=== PATIENT | female | born 1990 | race Caucasian/White ===

== ENCOUNTER 2019-04-02 06:00 | Day surgery (SDC) | payer OTHER ==
[~2019-04-02 06:00] MED LIST: KEFZOL 1 GM/50 ML PREMIX** 1 GM/50 ML IVPB IV SCH; Lactated Ringers 1,000 ML IV SCH
[2019-04-02] MEDS ORDERED: Lactated Ringers 1,000 ML IV ONE (06:18)
[2019-04-02] MEDS ORDERED: KEFZOL 1 GM/50 ML PREMIX** 1 GM/50 ML IVPB IV ONE (06:27)
[2019-04-02] MEDS ORDERED: DIPRIVAN 200 MG/20 ML IV ONE (06:48)
[2019-04-02] MEDS ORDERED: SUBLIMAZE 100 MCG/2 ML ONE (06:48)
[2019-04-02] MEDS ORDERED: Decadron 4 MG INJ ONE (07:04)
[2019-04-02] MEDS ORDERED: Zofran 4 MG/2 ML VIAL ONE (07:04)
[2019-04-02] MEDS ORDERED: Pitocin 10 UNITS/ML ONE (07:11)
[2019-04-02] MEDS ORDERED: Sodium Chloride 0.9% 250 ML 250 ML IV ONE (07:14)
[2019-04-02] MEDS ORDERED: TRANEXAMIC ACID 1000 MG/10 ML ONE (07:20)
[2019-04-02 08:00] VITALS: PULSE 84
[2019-04-02 08:36] VITALS: BP 127/69
[2019-04-02 08:52] VITALS: O2SAT 99
--- NOTE | 2019-04-02 08:54 | OP ---
SURGERY DATE/TIME: 04/02/2019 0658 PREOPERATIVE DIAGNOSIS: Missed , demise at 10 weeks, 2 days gestation. POSTOPERATIVE DIAGNOSIS: Missed , demise at 10 weeks, 2 days gestation. PROCEDURE: Ultrasound guided suction D&C. SURGEON: Pablo Alvarez D.O. TESTING COORDINATOR: Candi Michaud, operating room surgical technician. ANESTHESIA: General. ESTIMATED BLOOD LOSS: Minimal. COMPLICATIONS: None. INDICATIONS: The risks, benefits, indications and alternatives of the procedure were reviewed with the patient prior to procedure. The patient understood the risk of infection, bleeding, bowel injury, bladder injury, ureteral injury, uterine perforation associated with the surgery and desires to have the surgery as a possible means to alleviate her current medical condition. DESCRIPTION OF PROCEDURE AND FINDINGS: At this time the patient is taken to the operating room, given general sedation, placed in the dorsal lithotomy position. Prepped and draped in the usual sterile fashion. A weighted speculum is then placed in the patient's vagina and the anterior lip of the cervix is grasped with a single tooth tenaculum. Endocervical dilators were advanced through the endocervical canal as a means to dilate the cervix and at this point a #9 suction evacurette was placed into the endocervical canal where after introduction in the endocervical canal the machine was turned on for suctioning and retrieval for products of conception was ensued. From this point after significant removal of products of conception, the suction evacurette was switched to a #10 and under ultrasound guidance there appeared to be no products of conception that were noted by ultrasound during this time. After suctioning the evacurette was then removed and a curette was then placed into the fundus of the uterus and curettage was performed in all quadrants of the uterus retrieving the remaining tissue that may have been left behind. At this point again under ultrasound guidance there were no tissues that were noted and at this point all instruments were then removed from the patient's vaginal region. The patient was then taken out of the dorsal lithotomy position and was then taken to the recovery room in stable condition. All instruments and laps were accounted for x2.
[2019-04-02] MEDS ORDERED: Lactated Ringers 1,000 ML IV SCH (16:30)
== END 2019-04-02 08:25 | disposition home or self-care (01) ==
LOC: SDC 06:00
PROVIDERS: ATTEND Obstetrics & Gynecology
DX: O02.1 Missed abortion (principal)
CPT/HCPCS: 36415; 59820; 76937; J0690; J1100; J2405; J2590; J2704; J3010

== ENCOUNTER 2019-07-13 08:54 | Day surgery (SDC) | payer OTHER ==
[2019-07-13] MEDS ORDERED: EXPAREL 266 MG/20 ML VIAL IJ ONE (08:55)
--- NOTE | 2019-07-13 09:56 | HP ---
DATE OF SURGERY: 07/13/2019 HISTORY OF PRESENT ILLNESS: The patient is a 29 year-old who had pain, swelling and redness pilonidal area over the past three weeks, increased pain and swelling. She had just started on some antibiotics per Dr. Thacker who had asked for surgical evaluation. She is not having any current drainage. PAST MEDICAL HISTORY: She denies any chronic illnesses. PAST SURGICAL HISTORY: She had D&C in the past. MEDICATIONS: She had been on Bactrim recently as well as control pill. ALLERGIES: NKDA. FAMILY HISTORY: Negative in regards to this problem. SOCIAL HISTORY: No alcohol abuse. REVIEW OF SYSTEMS: Fourteen systems reviewed per admission assessment. No chest pain or palpitations. Otherwise pertinent for aches and pains in pilonidal area and has not had I&D. It is not spontaneously draining. Other systems negative or noncontributory as above and per preadmission questionnaire. PHYSICAL EXAMINATION: GENERAL: No acute distress. ENT - Moist mucous membranes. HEENT: Sclerae nonicteric. NECK: No JVD. CHEST: Equal excursion, nonlabored breathing. CVS: Regular rate and rhythm. ABDOMEN: Soft, nondistended. EXTREMITIES: No significant edema. NEURO: Alert, oriented, moving extremities symmetrically. No gross motor deficits noted. PSYCH: Appropriate mood and affect. : In the pilonidal area there is some induration cephalad off to the right looks like there may be a couple small pits in the midline. No active drainage. Very tender to palpation. IMPRESSION: Pilonidal cyst disease. Options were discussed with the patient at length in the office for some time including the option of office I&D as we did not have our instruments here in this clinic this morning and would need to set up in [facility] on Saturday if she elected that option versus I&D in the operating room to allow it to drain and hopefully get smaller than come back at a later date for definitive excision versus definitive excision at this setting, had a long discussion of risks and benefits. She prefers for definitive excision. She was explained the risks and benefits in detail including but not limited to bleeding or infection. The fact that excising it now given degree of infection likely would not be safe to try to close with flaps or other methods and likely would need to pack the wound, need to be packed from the base of the wound on at least a daily basis starting tomorrow. Remove and repack normal saline wet to dry. She understands. She was shown the risk sheet and understands that 90% or more heal in 8 to 12 weeks by secondary intent with packing and 5% slow heal and take longer than that, 5% fail to heal and need to try other methods. She understands there is a 20% risk of recurrence regardless how this pilonidal is treated. She understands the importance of keeping hair away from the wound to lessen the chance of recurrence both perioperatively and snf postoperatively as well as importance of minimizing aggressive activity in the early phase. She understands the risk of infection, general risk of anesthesia, deep venous thrombosis, pulmonary embolism, pneumonia, risk of aches, pains possible long-term or chronic in nature. She understands after hearing all the options she prefers to go ahead and proceed with definitive excision of this infected pilonidal cyst disease at this time understanding there is a very probable likelihood of needing to pack and change packing on a daily basis for several weeks. She prefers this rather than a trial of I&D and then definitive excision at a later date. She does understand the remote possibility if we are able to close it today that sutures will need to be in place for three weeks or so and there is a risk of dehiscence or infection that would still require packing and healing for 8 to 12 weeks. Will proceed with excisional biopsy of infected pilonidal cyst probable packing possible flap closure.
[2019-07-13] MEDS ORDERED: CEFAZOLIN 2 GM-D5W BAG** 2 GM/50 ML ML IV ONE (10:15)
[2019-07-13] MEDS ORDERED: Lactated Ringers 1,000 ML IV ONE ×3 (10:15→13:07)
[2019-07-13] MEDS ORDERED: CEFAZOLIN 2 GM-D5W BAG** 2 GM/50 ML ML IV SCH (10:30)
[2019-07-13] MEDS ORDERED: Lactated Ringers 1,000 ML IV SCH (10:30)
[2019-07-13] MEDS ORDERED: BRIDION 200MG/2ML IV ONE (12:11)
[2019-07-13] MEDS ORDERED: Zemuron 100 MG/10 ML ONE (12:11)
[2019-07-13] MEDS ORDERED: Xylocaine-Mpf 2% 5 Ml Vial ONE (12:11)
[2019-07-13] MEDS ORDERED: Decadron 4 MG INJ ONE (12:11)
[2019-07-13] MEDS ORDERED: SUBLIMAZE 100 MCG/2 ML ONE ×2 (12:11→13:05)
[2019-07-13] MEDS ORDERED: Zofran 4 MG/2 ML VIAL ONE (12:11)
[2019-07-13] MEDS ORDERED: TORAdol 30 mg Injection ONE (12:11)
[2019-07-13] MEDS ORDERED: DIPRIVAN 200 MG/20 ML IV ONE (12:11)
[2019-07-13] MEDS ORDERED: DILAUDID 2 MG INJECTION ONE (12:58)
[2019-07-13] MEDS ORDERED: NORCO 5/325 MG PO PRN (13:58)
[2019-07-13 14:10] VITALS: O2SAT 98
--- NOTE | 2019-07-13 15:05 | OP ---
SURGERY DATE/TIME: 07/13/2019 1214 PREOPERATIVE DIAGNOSIS: Infected pilonidal cyst. POSTOPERATIVE DIAGNOSIS: Infected pilonidal cyst including abscess. PROCEDURE: Excisional biopsy of infected pilonidal cyst with culture, irrigation and packing. SURGEON: Dr. Zachary Kovacs. ANESTHESIA: General. ESTIMATED BLOOD LOSS: Minimal. INDICATIONS: As noted above. Risks and benefits explained in detail and not limited to and consent obtained. DESCRIPTION OF PROCEDURE AND FINDINGS: The patient is taken to the operating room. General anesthesia introduced. Prone position, appropriate padding and positioned per anesthesia and OR staff. The abdominal area was prepped and draped in usual sterile fashion. After official time out and no disagreement with planned procedure, marking out around the extremely indurated area including a couple of midline pits. Dissection carried down to normal appearing underlying fascia. It was a large abscess cavity. Culture was taken in this cavity. It was excised as well as possible excising the granulation tissue, passing the specimen off for pathology and about 4 cm underneath and 2 cm deep. Cultures taken. Copious irrigation accomplished. Pin point cautery was used. Good hemostasis noted. The wound was then packed with saline soaked gauze, normal saline wet to dry. I did not ask for it but they had already opened Exparel so Exparel was used for local anesthetic around the area usually use 0.25% Marcaine but as they had opened Exparel injected Exparel in the wound site. The patient tolerated the procedure well. There were no immediate complications. Again, the patient fully understood that excising this would require packing preoperatively on a daily basis starting the day after the procedure so starting tomorrow she will need to remove the packing and repack normal saline wet to dry. I will see her back in the office next week. She already had antibiotics per primary care physician, will see her back in the office. This wound was far too infected to try closing as it would certainly dehisce and require packing anyway. Therefore it was packed at this setting.
[2019-07-13 15:09] VITALS: BP 127/66; PULSE 66
== END 2019-07-13 14:55 | disposition home or self-care (01) ==
LOC: SDC 08:54
PROVIDERS: ATTEND Surgery
DX: L05.01 Pilonidal cyst with abscess (principal)
CPT/HCPCS: 84703; 87070; J0690; J1100; J1170; J1885; J2405; J2704; J3010; A9270-GY

== ENCOUNTER 2020-06-21 02:13 | Inpatient (IN) | payer OTHER ==
[2020-06-21] MEDS ORDERED: Zofran 4 MG/2 ML VIAL IV PRN (19:00)
[2020-06-21] MEDS ORDERED: TYLENOL EXTRA STRENGTH 500 MG PO PRN (19:00)
[2020-06-21] MEDS ORDERED: BRETHINE 1 MG/ML SQ PRN (20:12)
[2020-06-21 20:15] LABS: Amphetamine,Urine NEGATIVE (NEGATIVE); Barbiturate,Urine NEGATIVE (NEGATIVE); Benzodiazepine,Urine NEGATIVE (NEGATIVE); Cocaine,Urine NEGATIVE (NEGATIVE); Methadone,Urine NEGATIVE (NEGATIVE); Opiate,Urine NEGATIVE (NEGATIVE); PCP,Urine NEGATIVE (NEGATIVE); THC,Urine NEGATIVE (NEGATIVE)
[2020-06-21] MEDS ORDERED: PITOCIN 30 UNITS/ LR 500 ML 30 UNITS/500 ML IV.SOLN. IV SCH (20:30)
[2020-06-21] MEDS: Lactated Ringers 1,000 ML IV SCH (20:49)
[2020-06-21 20:52] LABS: Absolute Neutrophil Ct (ANC) 10.29 (1.4-6.9); BASOPHIL % 0.2 % (0.0-0.4); Basophil (Absolute #) 0.02 (0-0.4); Eosinophil % 0.5 % (0.00-5.0); Eosinophil (Absolute #) 0.07 (0-0.5); Hematocrit 40.2 % (35-47); Lymphocytes % 13.8 % (24.0-44.0); Mean Cell Volume 90.7 fl (78-100); Mean Corpuscular Hemoglobin 29.3 pg (26-32); Mean Corpuscular Hgb Concent. 32.3 g/dl (32-36); Mean Platelet Volume 11.6 fl (7.5-11.0); Monocyte (Absolute #) 0.86 (0.0-1.3); Monocytes % 6.6 % (0.0-12.0); Neutrophil % 78.9 % (36.0-66.0); Platelet Count 184 K/mm3 (150-450); Red Blood Count 4.43 M/mm3 (4.1-5.4); Red Cell Distribution Width 13.9 % (11.5-14.0)
[2020-06-21] MEDS ORDERED: OMNIPEN 2 GM*** 2 G in Sodium Chloride 100ML MINI-BAG PLUS 100 ML IV ONE (21:00)
[2020-06-21] MEDS ORDERED: Cervidil 10 MG VAG SCH (22:00)
[2020-06-22] MEDS: OMNIPEN 1 GM*** 1 GM in Sodium Chloride 100ML MINI-BAG PLUS 100 ML IV SCH ×6 (01:15→21:00)
[2020-06-22] MEDS: Lactated Ringers 1,000 ML IV SCH ×3 (03:00→21:00)
[2020-06-22] MEDS ORDERED: OMNIPEN 2 GM*** 2 G in Sodium Chloride 100ML MINI-BAG PLUS 100 ML IV ONE (07:00)
[2020-06-22] MEDS ORDERED: Lactated Ringers 1,000 ML IV SCH (07:00)
[2020-06-22] MEDS ORDERED: PITOCIN 30 UNITS/ LR 500 ML 30 UNITS/500 ML IV.SOLN. IV SCH ×2 (08:00→10:00)
[2020-06-22] MEDS ORDERED: XYLOCAINE 1% HCL 20 ML MDV IJ PRN (08:00)
[2020-06-22] MEDS ORDERED: CORTISONE 1% CREAM TP PRN (16:21)
[2020-06-22] MEDS ORDERED: LANSINOH 40 GM TOP PRN (16:21)
[2020-06-22] MEDS ORDERED: NORCO 5/325 MG PO PRN (16:21)
[2020-06-22] MEDS ORDERED: Anucort-HC SUPPOSITORY PR PRN (16:21)
[2020-06-22] MEDS ORDERED: Dulcolax 10 MG SUPP PR PRN (16:21)
[2020-06-22] MEDS ORDERED: Mylicon 80MG PO PRN (16:21)
[2020-06-22] MEDS: Dermoplast Spray TP PRN (18:10)
[2020-06-22] MEDS: TUCKS TP PRN (18:11)
[2020-06-22] MEDS: MOTRIN 400 MG PO PRN (22:14)
[2020-06-22] MEDS: Colace 100 MG PO SCH (22:14)
[2020-06-23] MEDS: MOTRIN 400 MG PO PRN ×2 (04:09→10:13)
[2020-06-23 05:51] LABS: Absolute Neutrophil Ct (ANC) 10.37 (1.4-6.9); BASOPHIL % 0.1 % (0.0-0.4); Basophil (Absolute #) 0.02 (0-0.4); Eosinophil % 0.4 % (0.00-5.0); Eosinophil (Absolute #) 0.05 (0-0.5); Hemoglobin 11.3 gm/dl (12.0-16.0); Lymphocyte (Absolute #) 2.42 (1.0-4.6); Lymphocytes % 17.2 % (24.0-44.0); Mean Cell Volume 91.6 fl (78-100); Mean Corpuscular Hemoglobin 29.6 pg (26-32); Mean Corpuscular Hgb Concent. 32.3 g/dl (32-36); Mean Platelet Volume 11.6 fl (7.5-11.0); Monocyte (Absolute #) 1.24 (0.0-1.3); Monocytes % 8.8 % (0.0-12.0); Neutrophil % 73.5 % (36.0-66.0); Platelet Count 158 K/mm3 (150-450); Red Blood Count 3.82 M/mm3 (4.1-5.4); Red Cell Distribution Width 14.1 % (11.5-14.0); White Blood Count 14.1 K/mm3 (4.0-10.5)
[2020-06-23] MEDS: Colace 100 MG PO SCH ×2 (10:13→22:51)
[2020-06-23] MEDS: FERREX 150 PO SCH (10:14)
[2020-06-23] MEDS: TUCKS TP PRN (23:38)
[2020-06-23] MEDS: Dermoplast Spray TP PRN (23:38)
[2020-06-24 04:54] VITALS: O2SAT 96
--- NOTE | 2020-06-24 09:30 | PCM.DS ---
Discharge Summary Date of Admission: 06/22/20 09:11 Admitting Physician: RAGHAV MARTINEZ Primary Care Provider: RAGHAV MARTINEZ Allergies Allergies No Known Drug Allergies Allergy (Verified 04/01/19 16:13) Hospital Summary - Hospital Course Hospital Course: Pt came in as 30yo at 39w 6d for cervadil IOL due to term (and macrosomic previous delivery). Last u/s 3 weeks prior showed fetus at 66%ile. Pt was given cervadil overnight, and after AROM (clear fluid), pt progressed without pitocin or epidural and delivered a viable 8lb 2oz female over intact perineum. Short shoulder dystocia which resolved with McRobert's, suprapubic pressure, and manual delivery of posterior shoulder. Placenta delivered spontaneously, intact. Bottle feeding. Pt has recovered well, not on any narcotic pain medication. No complaints. H&H stable. Will be discharged to home today with baby. - Vitals & Intake/Output Vital Signs: Vital Signs Temperature 97.9 F 06/24/20 02:00 Pulse Rate 57 L 06/24/20 02:00 Respiratory Rate 18 06/24/20 02:00 Blood Pressure 118/61 06/24/20 02:00 O2 Sat by Pulse Oximetry 96 06/24/20 02:00 Intake & Output: Intake & Output 06/21/20 06/22/20 06/23/20 06/24/20 11:59 11:59 11:59 11:59 Intake Total 919 3762 1989 Balance 919 3762 1989 Weight 119.295 kg - Lab Result Diagrams: 06/23/20 05:45 Discharge Exam General Appearance: no apparent distress, alert Neurologic Exam: oriented x 3, cooperative Eye Exam: eyes nml inspection Ears, Nose, Throat Exam: moist mucous membranes Neck Exam: normal inspection Respiratory Exam: normal breath sounds, lungs clear, No crackles/rales, No rhonchi, No wheezing Cardiovascular Exam: regular rate/rhythm, normal heart sounds, No murmur Gastrointestinal/Abdomen Exam: soft, other (fundus firm approx 2cm superior to umbilicus), No tenderness Extremity Exam: swelling (trace pretibial edema bilat) Final Diagnosis/Problem List - Final Discharge Diagnosis/Problem (1) Vaginal delivery Current Visit: Yes Status: Acute Assessment & Plan: PPD #2, doing great. Home with baby today. F/u with me in 4-6 weeks. Code(s): O80 - ENCOUNTER FOR FULL-TERM UNCOMPLICATED DELIVERY (2) Anemia Current Visit: Yes Status: Acute Assessment & Plan: Mild. Fe x 1 mo. Code(s): D64.9 - ANEMIA, UNSPECIFIED - Discharge Disposition: Home, Self-Care Condition: Good Prescriptions: New Ferrous Sulfate 325 mg [Feosol 325 mg] 325 mg PO DAILY #30 tablet Ibuprofen 600 mg PO TID PRN #35 tablet PRN Reason: Pain Continue Vits W-Ca,Fe,FA(<1Mg) [] 1 tab PO DAILY Follow up with: RAGHAV MARTINEZ [Primary Care Provider] -
[2020-06-24] MEDS: FERREX 150 PO SCH (10:03)
[2020-06-24] MEDS: Colace 100 MG PO SCH (10:03)
[2020-06-24 15:53] VITALS: BP 122/67; PULSE 70
== END 2020-06-24 16:00 | disposition home or self-care (01) | DRG 807 ==
LOC: OB 09:11 → OBSVTOIN 06-22 09:11
PROVIDERS: ADMIT Family Medicine; ATTEND Family Medicine
PROC: 10E0XZZ Delivery of Products of Conception, External Approach (ICD-10-PCS; principal; 2020-06-22)
DX: O69.81X0 Labor and delivery complicated by cord around neck, without compression, not applicable or unspecified (principal); Z37.0 Single live birth; Z3A.40 40 weeks gestation of pregnancy; D64.9 Anemia, unspecified
CPT/HCPCS: 36415; 80307; 85025; G0378; J0290; J2590; A9270-GY

== ENCOUNTER 2023-09-01 11:22 | Emergency (ER) | payer OTHER ==
[2023-09-01 11:35] VITALS: BP 109/69; PULSE 61; TEMP 98.1; O2SAT 98
--- NOTE | 2023-09-01 11:52 | ERPHSYRPT ---
- History of Present Illness Time Seen by Provider: 09/01/23 11:49 Source: patient Exam Limitations: no limitations Patient Subjective Stated Complaint: Pt fell face first on concrete Saturday night and has an abrasion to her right forehead and a black eye Triage Nursing Assessment: Pt drove self to the ER, vitals wnl, rates pain as 3/10, has had a continual headache since the fall, pt had minimal swelling above her eye yesterday and woke this morning with her right eye bruised and almost swollen shut, denies LOC, denies N&V, pulses normal, skin n/w/d, forehead already scabbing over Physician History: Pt fell face first on concrete Saturday night and has an abrasion to her right forehead and a black eye has had a continual headache since the fall, pt had minimal swelling above her eye yesterday and woke this morning with her right eye bruised and almost swollen shut, denies Loss of consciousness forehead already scabbing over Occurred: days ago (Two days ago) Head Injury Location: frontal Method of Injury: fell Loss of Consciousness: no loss of consciousness Associated Symptoms: headaches Allergies/Adverse Reactions: No Known Drug Allergies Allergy (Verified 09/01/23 11:35) Home Medications: No Reportable Medications [No Reported Medications] 09/01/23 [History] Hx Tetanus, Diphtheria Vaccination/Date Given: Yes Hx Influenza Vaccination/Date Given: No Hx Pneumococcal Vaccination/Date Given: No Travel Risk - International Travel Have you traveled outside of the country in past 3 weeks: No - Emerging Infectious Disease Are you exhibiting symptoms associated with any current EIDs: No - Review of Systems Constitutional: No Symptoms Eyes: Other (right side racoon eye) Ears, Nose, & Throat: No Symptoms Respiratory: No Symptoms Cardiac: No Symptoms Abdominal/Gastrointestinal: No Symptoms Genitourinary Symptoms: No Symptoms Musculoskeletal: No Symptoms Skin: No Symptoms Neurological: Headache - Past Medical History Pertinent Past Medical History: Yes Neurological History: No Pertinent History ENT History: No Pertinent History Cardiac History: No Pertinent History Respiratory History: No Pertinent History Endocrine Medical History: No Pertinent History Musculoskeletal History: No Pertinent History GI Medical History: No Pertinent History History: No Pertinent History Psycho-Social History: Anxiety Female Reproductive Disorders: Other Other Medical History: miscarriage 2011 @ 2019 - Past Surgical History Past Surgical History: Yes Neuro Surgical History: No Pertinent History Cardiac: No Pertinent History Respiratory: No Pertinent History Gastrointestinal: No Pertinent History Genitourinary: No Pertinent History Musculoskeletal: No Pertinent History Female Surgical History: Dilation & Curettage, Tubal Ligation Other Surgical History: d&c x2 cyst removal 2020 Significant Family History: no pertinent family hx - Female History Hx Last Menstrual Period: PT UNSURE Hx Now: No (tubal) - Social History Smoking Status: Former smoker How long have you smoked: FEW YRS" Exposure to second hand smoke: Yes Alcohol Use: Socially Drug Use: none Patient Lives Alone: No - Social Determinants of Health Will the patient participate in the screening: Yes Do you worry about a steady place to live?: No Do you have any problems with any of the following?: No known problems In the past 12 months,have you had to go without utilities?: No Transportation Issues: No Has anyone in your support network made you feel unsafe?: No Have you or anyone in your house had to go without enough: No - Nursing Vital Signs Nursing Vital Signs: Initial Vital Signs Temperature 98.1 F 09/01/23 11:28 Pulse Rate 61 09/01/23 11:28 Blood Pressure 109/69 09/01/23 11:28 O2 Sat by Pulse Oximetry 98 09/01/23 11:28 Pain Scale Pain Intensity 3 - Thermal Coma Score Best Eye Response (Omid): (4) open spontaneously Best Verbal Response (Omid): (5) oriented Best Motor Response (Omid): (6) obeys commands Thermal Total: 15 - Physical Exam General Appearance: no apparent distress, alert Head Injury: raccoon eyes Eye Exam: bilateral eye: PERRL, EOMI ENT Exam: airway nml Neck Exam: supple Cardiovascular/Respiratory Exam: chest non-tender, normal breath sounds, regular rate/rhythm Gastrointestinal/Abdominal Exam: soft, non tender, no distention Back Exam: normal inspection, No vertebral tenderness Extremity Exam: non-tender, normal range of motion, normal inspection Mental Status Exam: alert, oriented x 3, cooperative development team lead Exam: normal hearing Coordination/Gait Exam: normal finger to nose Motor/Sensory Exam: no motor deficit, no sensory deficit, CN II-XII intact Skin Exam: normal color, warm, dry, No rash SpO2 Interpretation: normal SpO2: 98 O2 Delivery: Room Air - Course Nursing assessment & vital signs reviewed: Yes - CT Exams Head CT Interpretation: Tele-radiologist Report Ordered Tests: Active Orders 24 hr Category Date Time Status HEAD WITHOUT CONTRAST [CT] Stat Exams 09/01/23 12:00 Completed Lab/Rad Data: CT/HEAD WITHOUT CONTRAST CLINICAL HISTORY: fall, head injury COMPARISON: none. TECHNIQUE: An axial non-contrast CT scan of the brain was performed from the skull base to the high parietal region. One of the following dose-reduction techniques was utilized for this exam. Automated exposure control, adjustment of the mA and/or kV according to patient size, and use of iterative reconstruction. FINDINGS: Skull : Normal skull morphology.No fracture lines Brain Parenchyma: Normal attenuation of the cerebral hemispheres, cerebellum, and brainstem. No evidence of acute infarct, hemorrhage, or mass effect. No abnormal areas of hypo- or hyperattenuation. Ventricular System: Ventricles are normal in size and configuration. No evidence of hydrocephalus or ventricular enlargement. Subarachnoid Spaces: Normal sulci and cisterns. No evidence of subarachnoid hemorrhage or extra-axial fluid collections. Cerebellum and Brainstem: Normal size and signal. No masses, lesions, or areas of abnormal signal. Pituitary Gland: Normal size and morphology. Orbits: Normal appearance of the globes, optic nerves, and extraocular muscles. Sinuses: Clear paranasal sinuses. No evidence of sinusitis or mucosal thickening. Mastoid Air Cells: Clear mastoid air cells. No evidence of mastoiditis. IMPRESSION: 1. No fracture lines. No parenchyma or extra-axial fresh blood density. 2. Unremarkable CT brain study. - Progress Progress: improved Counseled pt/family regarding: diagnosis, need for follow-up, rad results Medical Desision Making - Diagnostic Testing Diagnostic test were ordered, analyzed, and reviewed by me: Yes Radiological Interpretation: Teleradiologist Report - Risk of complications Minimal Risk: Minimal risk of morbidity - Departure Departure Disposition: Home Clinical Impression: Fall (on) (from) other stairs and steps, initial encounter Head injury, acute Qualifiers: Encounter type: initial encounter Qualified Code(s): S09.90XA - Unspecified injury of head, initial encounter Condition: Stable Critical Care Time: No Referrals: JUDY COOK MD [Primary Care Provider] - Follow up/PCP as directed Instructions: Contusion (DC), Head injury observation in adults Additional Instructions: Discharge/Care Plan ALEXANDRAJACK was seen on 09/01/23 in the Emergency Room. The patient was counseled regarding Diagnosis,Lab results, Imaging studies, need for follow up and when to return to the Emergency Room. Prescriptions given: Discharge Note I have spoken with the patient and/or caregivers. I have explained the patient's condition, diagnosis and treatment plan based on the information available to me at this time. I have answered the patient's and/or caregiver's questions and addressed any concerns. The patient and/or caregivers have as good understanding of the patient's diagnosis, condition and treatment plan as can be expected at this point. The vital signs have been stable. The patient's condition is stable and appropriate for discharge from the emergency department. The patient will pursue further outpatient evaluation with the primary care physician or other designated or consulting physician as outlined in the discharge instructions. The patient and/or caregivers are agreeable to this plan of care and follow-up instructions have been explained in detail. The patient and/or caregivers have received these instruction. The patient/and or caregivers are aware that any significant change in condition or worsening of symptoms should prompt an immediate return to this or the closest emergency department or call 911. JACK MORRIS was seen on 09/01/23 n the Emergency Room. At that time you were treated for an emergent condition, during your visit Laboratory, Radiology and/or other procedures may have been ordered. It is very important that you follow-up with your Primary Care Physician JUDY COOK within the next 24- 48 hours to review your Emergency Room visit and the final results of testing that was ordered. Some test results such as Urine Cultures, Blood Cultures, and other cultures if ordered will not be finalized for 24-48 hours. If you do not have a Primary Care Provider please call the medical records department at [phone] ext [phone] to obtain a copy of your results or you may sign into our patient portal to obtain these results by visiting us @ [email or web address] and completing the following steps: 1. Click on the Patient Portal link 2. Click the Patient Self Enrollment Link to complete the enrollment form and entering your 3. Once the enrollment form is completed you will receive an email with a temporary ID and password at the email address you provided. 4. Next choose a user name and password. Your user name must be at least 4 characters long and your password must be at least 4 characters long. 5. Choose a security question from the list and provide your answer to the question. If you already have signed into the Health Portal you may access your Health Care Information 17/09 by the following steps: 1. Login to our website @ [email or web address] 2. Enter your original user name and password. FAQS The [facility] Health Portal is an online tool that contains your Lab Results, Radiology Reports, Visit History, Discharge Instructions and Health Summary Lab and Radiology Results will not be available for 72 hours on the portal. The Portal is a secure site, passwords are encryted and URLs are re-written so they cannot be copied and pasted. You and authorized family members are the only ones who can access your Portal. Also there is a timeout feature that protects your information if you leave the Portal page open. If you have technical difficulty please use the Contact Us link on the page this will allow you to submit any questions you have regarding the Portal or you may contact the Medical Record Department at [phone] ext [phone].
--- NOTE | 2023-09-01 12:31 | XRAY ---
CLINICAL HISTORY: fall, head injury COMPARISON: none. TECHNIQUE: An axial non-contrast CT scan of the brain was performed from the skull base to the high parietal region. One of the following dose-reduction techniques was utilized for this exam. Automated exposure control, adjustment of the mA and/or kV according to patient size, and use of iterative reconstruction. FINDINGS: Skull : Normal skull morphology.No fracture lines Brain Parenchyma: Normal attenuation of the cerebral hemispheres, cerebellum, and brainstem. No evidence of acute infarct, hemorrhage, or mass effect. No abnormal areas of hypo- or hyperattenuation. Ventricular System: Ventricles are normal in size and configuration. No evidence of hydrocephalus or ventricular enlargement. Subarachnoid Spaces: Normal sulci and cisterns. No evidence of subarachnoid hemorrhage or extra-axial fluid collections. Cerebellum and Brainstem: Normal size and signal. No masses, lesions, or areas of abnormal signal. Pituitary Gland: Normal size and morphology. Orbits: Normal appearance of the globes, optic nerves, and extraocular muscles. Sinuses: Clear paranasal sinuses. No evidence of sinusitis or mucosal thickening. Mastoid Air Cells: Clear mastoid air cells. No evidence of mastoiditis. IMPRESSION: 1. No fracture lines. No parenchyma or extra-axial fresh blood density. 2. Unremarkable CT brain study. Electronically Signed by: Tapan Durham MD. (09/01/2023 12:26:53 EDT)
== END 2023-09-01 12:51 | disposition home or self-care (01) ==
LOC: ED 11:22
DX: S09.90XA Unspecified injury of head, initial encounter (principal); W10.9XXA Fall (on) (from) unspecified stairs and steps, initial encounter; R51.9 Headache, unspecified
CPT/HCPCS: 70450; 99282